=== PATIENT | male | born 1950 | race Caucasian/White ===

== ENCOUNTER 2025-09-08 18:06 | Inpatient (IN) | payer MEDICARE ==
[2025-09-08] MEDS ORDERED: Dexamethasone 10 MG/ML VIAL ONE (18:23)
[2025-09-08] MEDS ORDERED: Cefepime 2 GM VIAL ONE (18:24)
[2025-09-08] MEDS ORDERED: Magnesium 2 GM/50 ML BAG (IN WATER) ONE (18:24)
[2025-09-08] MEDS ORDERED: Albuterol 2.5 MG (0.5 mL) NEB ONE (18:26)
[2025-09-08 18:37] LABS: #Basophils 0.04 10x3/uL (0.0-0.2); #Eosinophils Less than 0.03 10x3/uL (0.0-0.7); #Monocytes 0.30 10x3/uL (0.11-0.59); #Neutrophils 7.65 10x3/uL (1.40-6.50); %Basophils 0.5 % (0.0-1.0); %Eosinophils 0.0 % (0.0-10.0); %Lymphocytes 1.9 % (21.0-51.0); %Monocytes 3.6 % (0.0-10.0); %Neutrophils 92.0 % (42.0-75.0); Hematocrit 37.5 % (42.0-52.0); Hemoglobin 12.3 g/dL (14.0-18.0); Mean Corpuscular Hemoglobin 28.5 pg (27.0-31.0); Mean Corpuscular Volume 86.8 fL (78.0-98.0); Platelet Count 229 10x3/uL (130-400); Red Blood Cell (RBC) Count 4.32 mill/uL (4.70-6.10); White Blood Cell (WBC) Count 8.32 10x3/uL (4.8-10.8)
[2025-09-08] MEDS ORDERED: LevoFLOXacin 750 mg/D5W 150 ml Premix Bag ONE (18:37)
[2025-09-08 18:57] LABS: ALT (SGPT) 23 U/L (Less than 45); AST (SGOT) 22 U/L (11-34); Albumin 3.4 g/dL (3.1-4.5); Alkaline Phosphatase 62 U/L (40-110); Anion Gap 21 mmol/L (10-20); BUN (Urea Nitrogen) 51 mg/dL (8.4-25.7); Bilirubin, Total 0.5 mg/dL (0.3-1.2); Calc. Creatinine Clearance 0 mL/min (70-130); Calcium 9.1 mg/dL (7.8-10.44); Carbon Dioxide 20 mmol/L (23-31); Chloride 105 mmol/L (98-107); Globulin 3.4 g/dL (2.4-3.5); Glucose 140 mg/dL (83-110); Potassium 5.3 mmol/L (3.5-5.1); Sodium 141 mmol/L (136-145)
[2025-09-08] MEDS ORDERED: Senokot S 8.6-50 MG TAB PO PRN (20:22)
[2025-09-08] MEDS ORDERED: Acetaminophen 325 MG TAB PO PRN (20:22)
[2025-09-08] MEDS ORDERED: Ondansetron PF 4 MG/2 ML Vial IVP PRN (20:22)
[2025-09-08] MEDS ORDERED: Guaifenesin DM 100-10/5 ML UDCUP PO PRN (20:22)
[2025-09-08 20:40] LABS: Bacteria/HPF None Seen HPF (None Seen); CAUTI Indications for Culture Fever or rigors; Glucose, Urine (Dipstick) Normal (Negative); Leukocyte Negative Leu/uL (Negative); Protein, Urine (Dipstick) Negative (Neg-Trace); RBC/HPF 0-3 HPF (0-3); Specific Gravity, Urine 1.013 (1.002-1.036); WBC/HPF 0-3 HPF (0-3)
[2025-09-08 20:41] LABS: Urine Culture Reflex No No
[2025-09-08] MEDS: VANCOMYCIN 1.75 GM/350 ML Premix BAG IVPB SCH (23:17)
[2025-09-08] MEDS: Baclofen 10 MG TAB PO SCH (23:34)
[2025-09-08] MEDS: Apixaban 5 MG TAB PO SCH (23:34)
[2025-09-08] MEDS: Citalopram 20 MG TAB PO SCH (23:36)
[2025-09-09 00:54] VITALS: BMI 22.9
[2025-09-09 02:54] LABS: Legionella Urinary Ag Negative (Negative); Strep pneumo Urine Ag NEGATIVE (NEGATIVE)
[2025-09-09 03:43] LABS: #Basophils Less than 0.03 10x3/uL (0.0-0.2); #Eosinophils Less than 0.03 10x3/uL (0.0-0.7); #Monocytes 0.06 10x3/uL (0.11-0.59); #Neutrophils 6.43 10x3/uL (1.40-6.50); %Basophils 0.3 % (0.0-1.0); %Eosinophils 0.0 % (0.0-10.0); %Lymphocytes 1.3 % (21.0-51.0); %Monocytes 0.9 % (0.0-10.0); %Neutrophils 95.4 % (42.0-75.0); Hematocrit 35.3 % (42.0-52.0); Hemoglobin 10.8 g/dL (14.0-18.0); Mean Corpuscular Hemoglobin 28.5 pg (27.0-31.0); Mean Corpuscular Volume 93.1 fL (78.0-98.0); Platelet Count 208 10x3/uL (130-400); Red Blood Cell (RBC) Count 3.79 mill/uL (4.70-6.10); White Blood Cell (WBC) Count 6.74 10x3/uL (4.8-10.8)
[2025-09-09 04:13] LABS: Anion Gap 18 mmol/L (10-20); BUN (Urea Nitrogen) 46 mg/dL (8.4-25.7); Calc. Creatinine Clearance 54 mL/min (70-130); Calcium 8.5 mg/dL (7.8-10.44); Carbon Dioxide 18 mmol/L (23-31); Chloride 109 mmol/L (98-107); Glucose 138 mg/dL (83-110); Magnesium 1.9 mg/dL (1.6-2.6); Potassium 5.0 mmol/L (3.5-5.1); Sodium 140 mmol/L (136-145)
[2025-09-09] MEDS ORDERED: Vit B12/Folic Acid/B6/Aa No.15 [Glycotrol Capsule] 1 CAP PO SCH (09:00)
[2025-09-09] MEDS ORDERED: [UNRECOGNIZED DRUG - OTHER] PO SCH (09:00)
[2025-09-09] MEDS ORDERED: SENNOSIDES PO SCH (09:00)
[2025-09-09] MEDS ORDERED: DOCUSATE SODIUM PO SCH (09:00)
[2025-09-09] MEDS: Pantoprazole 40 MG DR.TAB PO SCH (10:09)
[2025-09-09] MEDS: DULoxetine 20 MG CAP PO SCH (10:09)
[2025-09-09] MEDS: Ferrous Sulfate 325 MG TAB PO SCH (10:09)
[2025-09-09] MEDS: cycloSPORINE, Modified 100 MG CAP PO SCH ×2 (17:53→23:33)
[2025-09-10 08:23] LABS: #Basophils Less than 0.03 10x3/uL (0.0-0.2); #Eosinophils Less than 0.03 10x3/uL (0.0-0.7); #Monocytes 0.46 10x3/uL (0.11-0.59); #Neutrophils 11.36 10x3/uL (1.40-6.50); %Basophils 0.1 % (0.0-1.0); %Eosinophils 0.0 % (0.0-10.0); %Lymphocytes 1.5 % (21.0-51.0); %Monocytes 3.8 % (0.0-10.0); %Neutrophils 93.6 % (42.0-75.0); Hematocrit 36.3 % (42.0-52.0); Hemoglobin 11.3 g/dL (14.0-18.0); Mean Corpuscular Hemoglobin 28.5 pg (27.0-31.0); Mean Corpuscular Volume 91.4 fL (78.0-98.0); Platelet Count 218 10x3/uL (130-400); Red Blood Cell (RBC) Count 3.97 mill/uL (4.70-6.10); White Blood Cell (WBC) Count 12.13 10x3/uL (4.8-10.8)
[2025-09-10 08:36] LABS: Anion Gap 17 mmol/L (10-20); BUN (Urea Nitrogen) 54 mg/dL (8.4-25.7); Calc. Creatinine Clearance 55 mL/min (70-130); Calcium 8.8 mg/dL (7.8-10.44); Carbon Dioxide 21 mmol/L (23-31); Chloride 109 mmol/L (98-107); Glucose 137 mg/dL (83-110); Potassium 4.9 mmol/L (3.5-5.1); Sodium 142 mmol/L (136-145)
[2025-09-10] MEDS: Sodium Bicarbonate Tab 325 MG TAB PO SCH (09:36)
[2025-09-10 12:04] LABS: Actual Bicarbonate (HCO3v) 20.4 mEq/L (22-28); Base Excess -5.2 mEq/L (-2.0 to +3.0); Calcium, Ionized (venous) 1.15 mmol/L (1.16-1.32); Chloride (VBG) 106 mmol/L (98-106); Hematocrit-VBG 38 % (42.0-52.0); Hemoglobin (Hb) 12.8 g/dL (12.6-17.4); Potassium (VBG) 4.77 mmol/L (3.70-5.30); Sodium 141 mmol/L (133-146)
[2025-09-10] MEDS: Calcium Carbonate 500 MG ChewTAB PO PRN (12:09)
[2025-09-11] MEDS ORDERED: PNEUMOC 20-VAL CONJ-DIP CRM/PF 0.5 ML SYRINGE IM ONE (09:00)
[2025-09-11] MEDS: Acetaminophen/Codeine 30-300mg Tablet PO PRN (09:41)
[2025-09-11] MEDS: Cefdinir 300 MG CAP PO SCH (20:30)
[2025-09-12] MEDS: predniSONE 20 MG TAB PO SCH (09:12)
[2025-09-12 19:47] VITALS: BP 140/85; TEMP 97.5
== END 2025-09-12 22:00 | disposition home or self-care (01) | DRG 189 ==
LOC: ERS 18:06 → 2NO 20:22
PROVIDERS: ADMIT Student in an Organized Health Care Education/Training Program; ATTEND Internal Medicine
DX: J96.21 Acute and chronic respiratory failure with hypoxia (principal); I50.32 Chronic diastolic (congestive) heart failure; I13.0 Hypertensive heart and chronic kidney disease with heart failure and stage 1 through stage 4 chronic kidney disease, or unspecified chronic kidney disease; G61.81 Chronic inflammatory demyelinating polyneuritis; N40.0 Benign prostatic hyperplasia without lower urinary tract symptoms; E87.5 Hyperkalemia; N18.30 Chronic kidney disease, stage 3 unspecified; F41.9 Anxiety disorder, unspecified; F32.A Depression, unspecified; Z86.718 Personal history of other venous thrombosis and embolism; Z79.01 Long term (current) use of anticoagulants; Z86.711 Personal history of pulmonary embolism; Z98.890 Other specified postprocedural states; Z79.899 Other long term (current) drug therapy; Z79.84 Long term (current) use of oral hypoglycemic drugs; Z79.2 Long term (current) use of antibiotics
CPT/HCPCS: 36415; 71045; 71250; 80048; 80053; 81001; 82805; 83605; 83735; 83880; 84145; 84443; 84484; 85025; 86141; 87040; 87086; 87428; 87449; 87899; 93005; J0692; J1100; J1956; J2919; J3375; J3475; J7502; J7512; J7515; J7611